=== PATIENT | male | born 1990 | race American Indian/Alaskan Native ===

== ENCOUNTER 2018-03-15 08:23 | Emergency (ER) | payer OTHER ==
[2018-03-15] MEDS ORDERED: MOTRIN PO ONE (09:42)
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
[2018-03-15 10:51] VITALS: BP 122/76
== END 2018-03-15 10:49 | disposition home or self-care (01) ==
LOC: ED 08:23
DX: S13.9XXA Sprain of joints and ligaments of unspecified parts of neck, initial encounter (principal); V49.49XA Driver injured in collision with other motor vehicles in traffic accident, initial encounter; Y93.89 Activity, other specified; Y92.89 Other specified places as the place of occurrence of the external cause; Y99.8 Other external cause status
CPT/HCPCS: 72040; 99283

== ENCOUNTER 2019-03-29 22:49 | Emergency (ER) | payer OTHER ==
[2019-03-29 23:21] VITALS: BP 150/89
[2019-03-30] MEDS ORDERED: IBUPROFEN PO ONE (01:14)
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
== END 2019-03-30 02:05 | disposition home or self-care (01) ==
LOC: ED 22:49
DX: K02.9 Dental caries, unspecified (principal)